=== PATIENT | male | born 1990 | race Caucasian/White ===

== ENCOUNTER 2019-12-03 14:20 | Emergency (ER) | payer MEDICAID, SELFPAY ==
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
[2019-12-03 14:23] VITALS: BMI 27.3
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
--- NOTE | 2019-12-03 14:30 | PC.NURSE ---
Right and Left Dorsalis Pedis pulses doppled successfully at a rate of 131
--- NOTE | 2019-12-03 14:36 | PC.NURSE ---
RIGHT ANKLE AND LOWER LEG SPLINTED BY ORTHOPEDIC SURGEON IN ROOM
[2019-12-03 14:37] VITALS: BP 89/71; PULSE 133; RESP 37; TEMP 36.6; O2SAT 97
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
[2019-12-03 14:58] VITALS: BP 124/91; PULSE 131; RESP 31; O2SAT 96
--- NOTE | 2019-12-03 15:05 | PC.NURSE ---
unable to place catheter, blood return from penis. ed provider aware
--- NOTE | 2019-12-03 15:07 | PC.NURSE ---
pt to ct by stretcher with RN*2 and RT
[2019-12-03] MEDS: fentaNYL 50 mcg/mL INJ 2mL 100 MCG IVP ×2 (15:10→15:33)
[2019-12-03] MEDS: ceFAZolin 1,000 MG in sodium chloride 0.9% (plus) 50 ML 100 MG IV (15:10)
--- NOTE | 2019-12-03 15:10 | PC.NURSE ---
Pt wedding ring removed and given to [place]
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
[2019-12-03 15:15] VITALS: BP 140/80; PULSE 129; O2SAT 100
[2019-12-03] MEDS: hydrocortisone 100 mg/2 mL SDV IVP (15:16)
[2019-12-03] MEDS: diphenhydrAMINE 50 mg/mL SDV 1mL IVP (15:16)
--- NOTE | 2019-12-03 15:19 | PC.NURSE ---
2 pints of O(-) blood started at 1430
--- NOTE | 2019-12-03 15:27 | PC.NURSE ---
Pt back from CT
[2019-12-03 15:28] VITALS: BP 140/80; PULSE 129; O2SAT 100
[2019-12-03 15:40] VITALS: BP 134/91; PULSE 147; O2SAT 100
[2019-12-03 15:46] LABS: Basophils # 0.1 10^3/uL (0.0-0.1); Basophils % 0.3 %; Eosinophils # 0.2 10^3/uL (0.0-0.8); Eosinophils % 0.8 %; Hematocrit 36.1 % (42.0-52.0); Hemoglobin 11.7 g/dL (11.7-16.6); Lymphocytes # 2.8 10^3/uL (0.8-4.8); Lymphocytes % 9.7 %; Mean Corpuscular HGB Conc 32.4 g/dL (30.0-36.0); Mean Corpuscular Hemoglobin 29.1 pg (28.0-34.0); Mean Corpuscular Volume 89.8 fL (80-94); Mean Platelet Volume 10.4 fL (7.4-10.4); Monocytes # 1.9 10^3/uL (0.2-0.9); Monocytes % 6.6 %; Neutrophils # 23.3 10^3/uL (1.8-7.7); Neutrophils % 81.5 %; Nucleated Red Blood Cells % 0 %; Platelet Count 387 10^3/cmm (130-400); Red Blood Count 4.02 10^6/uL (4.1-5.3); Red Cell Distribution Width 11.8 % (12.1-15.1); White Blood Count 28.6 10^3/uL (4.0-10.0)
[2019-12-03 16:03] LABS: Alanine Aminotransferase 27 U/L (0-41); Albumin Level 3.5 g/dL (3.5-5.2); Alkaline Phosphatase 61 IU/L (40-130); Anion Gap 16.3 (5-19); Blood Urea Nitrogen 15 mg/dL (6-20); Calcium 7.6 mg/dL (8.5-10.5); Carbon Dioxide 22 mmol/L (22-29); Chloride 102 mmol/L (98-107); Glomerular Filtration Rate 79.1 mL/min (90-130); Glucose 202 mg/dL (74-109); Potassium 3.3 mmol/L (3.5-5.1); Sodium 137 mmol/L (136-145); Total Bilirubin 0.6 mg/dL (0.15-1.2); Total Protein 5.5 g/dL (6.6-8.7)
[2019-12-03] MEDS: iodixanol 320 mg/mL 100mL Btl IV (16:11)
[2019-12-03 16:24] LABS: Aspartate Amino Transferase 45 U/L (0-40)
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
== END 2019-12-03 15:41 ==
PROVIDERS: Emergency Provider Family Medicine
DX: S72.332A Displaced oblique fracture of shaft of left femur, initial encounter for closed fracture (principal); S82.251A Displaced comminuted fracture of shaft of right tibia, initial encounter for closed fracture; S82.451A Displaced comminuted fracture of shaft of right fibula, initial encounter for closed fracture; S42.302A Unspecified fracture of shaft of humerus, left arm, initial encounter for closed fracture; S35.00XA Unspecified injury of abdominal aorta, initial encounter; V89.2XXA Person injured in unspecified motor-vehicle accident, traffic, initial encounter
CPT/HCPCS: 70450; 71045; 71260; 72125; 72170; 73551; 73590; 74177; 80053; 85025; 86850; 86900; 96365; 96366; 96374; 99282; J0690; J1200; J1720; J3010; P9016; Q9967

== ENCOUNTER 2019-12-12 06:00 | Outpatient (RCR) | payer MEDICAID, SELFPAY | END 2020-01-09 23:59 | disposition home or self-care (01) | LOC: AST 06:00 | PROVIDERS: PCP Physical Medicine & Rehabilitation; Referring Provider Physical Medicine & Rehabilitation; Visit Provider Physical Medicine & Rehabilitation | DX: S06.890D Other specified intracranial injury without loss of consciousness, subsequent encounter (principal) | CPT/HCPCS: 92523 ==

== ENCOUNTER → 2020-01-04 13:00 | Outpatient (BNVA) | payer MEDICAID, SELFPAY | PROVIDERS: PCP Physical Medicine & Rehabilitation; Referring Provider Physical Medicine & Rehabilitation; Visit Provider Specialist | DX: Z71.89 Other specified counseling (principal); F17.210 Nicotine dependence, cigarettes, uncomplicated | CPT/HCPCS: 96116; 99204 ==

== ENCOUNTER 2020-02-10 06:00 | Outpatient (RCR) | payer MEDICAID, SELFPAY | END 2020-03-10 23:59 | disposition home or self-care (01) | LOC: AST 06:00 | PROVIDERS: Referring Provider Physical Medicine & Rehabilitation; Visit Provider Physical Medicine & Rehabilitation | DX: S06.890D Other specified intracranial injury without loss of consciousness, subsequent encounter (principal); X58.XXXD Exposure to other specified factors, subsequent encounter | CPT/HCPCS: 92507 ==

== ENCOUNTER 2020-02-23 06:00 | Outpatient (RCR) | payer MEDICAID, SELFPAY | END 2020-03-10 23:59 | disposition home or self-care (01) | LOC: APT 06:00 | PROVIDERS: Referring Provider Physician Assistant; Visit Provider Physician Assistant | DX: G89.21 Chronic pain due to trauma (principal); M25.561 Pain in right knee; M25.562 Pain in left knee; M25.60 Stiffness of unspecified joint, not elsewhere classified; M25.552 Pain in left hip; M25.571 Pain in right ankle and joints of right foot; M25.572 Pain in left ankle and joints of left foot; Z47.89 Encounter for other orthopedic aftercare | CPT/HCPCS: 97110; 97112; 97116; 97163; 97530 ==

== ENCOUNTER 2020-03-11 06:00 | Outpatient (RCR) | payer MEDICAID, SELFPAY | END 2020-04-10 23:59 | disposition home or self-care (01) | LOC: APT 06:00 | PROVIDERS: Referring Provider Physician Assistant; Visit Provider Physician Assistant | DX: Z47.89 Encounter for other orthopedic aftercare (principal) | CPT/HCPCS: 97110; 97116; 97530 ==

== ENCOUNTER 2020-03-11 06:00 | Outpatient (RCR) | payer MEDICAID, SELFPAY | END 2020-04-10 23:59 | disposition home or self-care (01) | LOC: AST 06:00 | PROVIDERS: Referring Provider Physical Medicine & Rehabilitation; Visit Provider Physical Medicine & Rehabilitation | DX: S06.9X0D Unspecified intracranial injury without loss of consciousness, subsequent encounter (principal); X58.XXXD Exposure to other specified factors, subsequent encounter | CPT/HCPCS: 92507 ==

== ENCOUNTER 2020-05-24 20:00 | Outpatient (CLI) | payer MEDICAID, SELFPAY | END 2020-05-24 20:01 | disposition home or self-care (01) | LOC: SLEEP 05-25 09:46 | PROVIDERS: Visit Provider Anesthesiology Pain Medicine | DX: G47.10 Hypersomnia, unspecified (principal); G47.33 Obstructive sleep apnea (adult) (pediatric); R53.83 Other fatigue; R06.83 Snoring | CPT/HCPCS: 95810 ==

== ENCOUNTER 2020-06-08 14:48 | Outpatient (CLI) | payer MEDICAID, SELFPAY ==
--- NOTE | 2020-06-08 15:02 | XR_ITS ---
WS: [id number] LUMBAR SPINE: 3 VIEWS TECHNIQUE: AP, lateral and L5-S1 spot. HISTORY: LOW BACK PAIN COMPARISON: None available. Lumbar vertebra are normally aligned. No loss of disc space or vertebral body height. SI joints are symmetric bilaterally. No soft tissue abnormalities. XR/XR lumbar spine 2-3V* 44530 IMPRESSION: Normal lumbar spine.
== END 2020-06-08 14:49 | disposition home or self-care (01) ==
LOC: RADWPI 14:52
PROVIDERS: Visit Provider Anesthesiology Pain Medicine
DX: M54.5 Low back pain (principal)
CPT/HCPCS: 72100

== ENCOUNTER 2020-07-05 20:00 | Outpatient (CLI) | payer MEDICAID, SELFPAY | END 2020-07-05 20:01 | disposition home or self-care (01) | LOC: SLEEP 07-06 09:34 | PROVIDERS: Visit Provider Anesthesiology Pain Medicine | DX: G47.33 Obstructive sleep apnea (adult) (pediatric) (principal) | CPT/HCPCS: 95811 ==

== ENCOUNTER 2021-02-15 17:34 | Observation (INO) | payer MEDICAID, SELFPAY ==
[2021-02-15 17:37] VITALS: BP 125/81; PULSE 98; RESP 16; TEMP 36.2; O2SAT 98; BMI 25.8
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
[2021-02-15 18:16] VITALS: RESP 16; O2SAT 97
[2021-02-15] MEDS: morphine 4 mg/mL SDV 1 mL IVP (18:16)
[2021-02-15] MEDS: sodium chloride 0.9% 1,000 ML 999 ML IV (18:17)
[2021-02-15] MEDS: ondansetron 2 mg/ML SDV 2 mL 4 MG IVP (18:17)
[2021-02-15 18:27] LABS: Basophils # 0.1 10^3/uL (0.0-0.1); Basophils % 0.6 %; Eosinophils # 0.1 10^3/uL (0.0-0.8); Eosinophils % 1.2 %; Hemoglobin 13.3 g/dL (11.7-16.6); Lymphocytes # 1.9 10^3/uL (0.8-4.8); Mean Corpuscular HGB Conc 32.4 g/dL (30.0-36.0); Mean Corpuscular Hemoglobin 29.2 pg (28.0-34.0); Mean Corpuscular Volume 89.9 fL (80-94); Mean Platelet Volume 10.6 fL (7.4-10.4); Monocytes # 0.7 10^3/uL (0.2-0.9); Monocytes % 6.3 %; Neutrophils # 8.47 10^3/uL (1.8-7.7); Neutrophils % 74.5 %; Nucleated Red Blood Cells % 0 %; Platelet Count 373 10^3/cmm (130-400); Red Blood Count 4.56 10^6/uL (4.1-5.3); Red Cell Distribution Width 12.2 % (12.1-15.1); White Blood Count 11.4 10^3/uL (4.0-10.0)
[2021-02-15 18:42] VITALS: BP 108/73; PULSE 99; RESP 18; O2SAT 96
[2021-02-15 19:00] LABS: Alanine Aminotransferase 124 U/L (0-41); Albumin Level 4.4 g/dL (3.5-5.2); Alkaline Phosphatase 153 IU/L (40-130); Anion Gap 16.2 (5-19); Aspartate Amino Transferase 184 U/L (0-40); Blood Urea Nitrogen 11 mg/dL (6-20); Calcium 9.2 mg/dL (8.5-10.5); Carbon Dioxide 25 mmol/L (22-29); Chloride 105 mmol/L (98-107); Globulin 2.5 g/dL (1.3-4.6); Glomerular Filtration Rate 157.1 mL/min (90-130); Glucose 137 mg/dL (65-115); Lipase 45 U/L (13-60); Osmolality Calculated 298 mOsm/kg (285-295); Potassium 3.2 mmol/L (3.5-5.1); Sodium 143 mmol/L (136-145); Total Bilirubin 1.7 mg/dL (0.15-1.2); Total Protein 6.9 g/dL (6.6-8.7)
[2021-02-15] MEDS: levofloxacin-dextrose 5 % 750 MG/150 ML PREMIX 100 MG IV (19:13)
[2021-02-15 20:08] VITALS: BP 105/66; PULSE 105; RESP 18; O2SAT 98
[2021-02-15] MEDS: HYDROmorphone 1 mg/mL INJ 1 mL IVP (20:14)
[2021-02-15 21:30] VITALS: BP 127/81; PULSE 88; RESP 18; TEMP 36.4; O2SAT 98
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
[2021-02-15] MEDS: sodium chloride 0.9% 1,000 ML 100 ML IV (22:57)
[2021-02-16] VITALS (13 sets, daily range): BP systolic 94–136; BP diastolic 59–86; PULSE 65–125; RESP 16–20; TEMP 36.1–37.2; O2SAT 94–100
[2021-02-16 02:16] LABS: Basophils # 0.1 10^3/uL (0.0-0.1); Eosinophils # 0.2 10^3/uL (0.0-0.8); Eosinophils % 2.8 %; Hematocrit 37.2 % (42.0-52.0); Hemoglobin 11.9 g/dL (11.7-16.6); Lymphocytes # 2.3 10^3/uL (0.8-4.8); Mean Corpuscular Hemoglobin 29.2 pg (28.0-34.0); Mean Corpuscular Volume 91.2 fL (80-94); Mean Platelet Volume 10.6 fL (7.4-10.4); Monocytes # 0.6 10^3/uL (0.2-0.9); Monocytes % 9.6 %; Neutrophils # 2.91 10^3/uL (1.8-7.7); Neutrophils % 48.3 %; Nucleated Red Blood Cells % 0 %; Platelet Count 302 10^3/cmm (130-400); Red Blood Count 4.08 10^6/uL (4.1-5.3); Red Cell Distribution Width 12.2 % (12.1-15.1)
[2021-02-16 02:32] LABS: Alanine Aminotransferase 229 U/L (0-41); Albumin Level 3.8 g/dL (3.5-5.2); Alkaline Phosphatase 180 IU/L (40-130); Anion Gap 12.7 (5-19); Aspartate Amino Transferase 305 U/L (0-40); Blood Urea Nitrogen 9 mg/dL (6-20); Calcium 8.7 mg/dL (8.5-10.5); Carbon Dioxide 27 mmol/L (22-29); Chloride 106 mmol/L (98-107); Globulin 2.2 g/dL (1.3-4.6); Glomerular Filtration Rate 131.5 mL/min (90-130); Glucose 90 mg/dL (65-115); Osmolality Calculated 292 mOsm/kg (285-295); Potassium 3.7 mmol/L (3.5-5.1); Sodium 142 mmol/L (136-145); Total Bilirubin 1.6 mg/dL (0.15-1.2)
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
[2021-02-16] MEDS: sodium chloride 0.9% 1,000 ML 100 ML IV ×2 (07:09→10:58)
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
--- NOTE | 2021-02-16 10:09 | PM.OP ---
Operative Report Date of procedure: February 16, 2021 Pre-op Diagnosis: Acute calculus cholecystitis. Post-op diagnosis: same Procedure Done: Laparoscopic cholecystectomy. Specimens removed/disposition: Gallbladder. Surgeon: Russel Delacruz Anesthesia: General Estimated blood loss (mL): 5 Complications: None. Condition: stable Disposition: PACU Procedure: The patient was brought to the Operating Room and was placed in a supine position on the Operating Room table. General endotracheal anesthesia was induced. The abdomen was prepped and draped in a sterile fashion. A small vertical incision was carried out in the inferior aspect of the umbilicus. Blunt dissection was carried out down to the fascia, which was grasped with a Crystal clamp. A stay suture of 0 Vicryl was placed on either side of the midline and the midline fascia was incised. The underlying peritoneum was opened bluntly and the Martha port was placed directly into the peritoneal cavity and was held in place with the inflatable balloon. The peritoneal cavity was insufflated with carbon dioxide. The laparoscope was used to inspect the abdominal cavity. The gallbladder appeared to be somewhat edematous and distended but no other gross abnormalities were initially noted. A 5 millimeter port was placed in the epigastrium under direct vision. Two 5-millimeter ports were placed on the right side of the abdomen under direct vision. The gallbladder was grasped and was elevated. The patient had some adhesions from the gallbladder to the duodenum that were easily taken down. Blunt dissection and hydrodissection were carried out in the infundibular region of the gallbladder and the cystic duct and cystic artery were identified. The surrounding tissue was very edematous. The gallbladder was partially removed from the liver bed using cautery and the spatula to confirm the anatomy before the structures were clipped and divided. The gallbladder was then removed from the liver bed using cautery and the spatula. Again, the plane between the gallbladder and the liver bed was very edematous. After the gallbladder had been removed from the liver bed, the laparoscope was moved to the epigastric port and the gallbladder was removed from the peritoneal cavity through the umbilical port site after being placed in a laparoscopic bag. The stay sutures of Vicryl were tied to each other at the umbilicus, closing the defect so that it was airtight. The perihepatic spaces were irrigated with saline and the liver bed was reinspected. No ongoing problems were seen. The remaining ports were removed from the abdominal wall and the pneumoperitoneum was evacuated. All skin incisions were closed using inverted interrupted sutures of 4-0 Vicryl. Benzoin and Steri-Strips were placed over the incisions and Band-Aids followed. The patient was taken to the Recovery Area in stable condition postoperatively.
[2021-02-16] MEDS: ondansetron 2 mg/ML SDV 2 mL 4 MG IVP (10:27)
[2021-02-16] MEDS: famotidine 20 mg/2 mL INJ IVP (10:53)
[2021-02-16] MEDS: HYDROcodone-acetaminophen 5-325 mg Tablet 1 TAB PO (10:53)
--- NOTE | 2021-02-16 11:00 | PC.CHAP ---
Pastoral Care Encounter/Spiritual Assessment Type of Contact [] Declined geoscience professor visit [] Patient/Family/Request visit [] Outpatient visit [x] Follow-up visit [] Physician referral [] Code/Alert [] Routine visit [] Staff referral [] Actively dying [] Patient sleeping [] Family support [] [] Out of room [] Palliative care [] [] Receiving care in room [] Pre-surgical visit [] Trauma [] Long length of stay [] ICU visit [x] Other: in surgery Relational/Emotional Strength [] Patient feels connected with others/family/visitors/staff [] Distress [] Loneliness/isolation [] Abandonment Spirituality of Patient [] Person of Sridevi [] Attends Jew of their Sridevi [] Believes in Prayer [] Reads Bible or Moravian materials [] There are Spiritual issues to be addressed 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 [] Prayer [] Active listening [] Non-anxious presence [] Spiritual/emotional support [] Crisis/trauma care [] Spiritual counseling [] Bereavement support [] Provided bereavement packet [] Provided Bible/devotional materials [] Provided toy/stuffed animal, coloring book to patient or family member [] Provided Communion [] Anointing/Rogers [] Salvation [] Completed spiritual assessment [] Other: Impact on Illness or Injury [] Angry [] Fearful [] Anxious [] Often cries [] Exhaustion [] Unable to work [] Unable to attend islam [] Unable to walk/stand [] Unable to read [] Unable to drive [] Unable to eat/drink [] Unable to sleep [] Unable to be with family [] Patient intubated [] Other: Summary in surgery Time spent with patient 5 mins
--- NOTE | 2021-02-16 12:18 | P.DS_ITS ---
Discharge Providers Date of Admission: 02/15/21 19:11 Date of Discharge: February 16, 2021 Attending Provider at Admission: Russel Delacruz MD Attending Provider at Discharge: Russel Delacruz MD Primary Care Provider: RESHMA Pearce Diagnoses at Discharge Discharge Diagnosis (1) Acute cholecystitis due to biliary calculus: Status: Acute Reason for Visit Reason for Visit: abd. pain Hospital Course Hospital Course This is a 31-year-old white male who developed right upper quadrant pain several days prior to presenting to the emergency department. He had noticed some increasing nausea over the past month but this was the first time he had actually had pain. He had noticed it had gotten worse when he tried to eat things. An ultrasound revealed changes consistent with acute calculus cholecystitis. The patient was brought in for observation. The following mor kimi, he was taken to the operating room and a laparoscopic cholecystectomy was performed. He had changes typical of acute cholecystitis. Postoperatively the patient was already feeling better and was anxious to go home. He was instructed with respect to wound care, activity limitations, diet, etc. A follow-up appointment will be made for him to see me in the office as an outpatient. Physical Exam Narrative: EXAM NARRATIVE: Postoperatively, the patient had apparently had a small amount of oozing from the incision at his umbilicus. The dressing was reinforced and there did not appear to be any ongoing bleeding. All of his other incisions looked good. Discharge Data Data Completed and Pending: Completed Studies During Hospitalization Category Date Time Status US gall bladder 7 [id number] Urgent Ultrasound 02/15/21 17:53 Completed Pending at discharge Category Date Time Status ES surgery / GI i mages Routine Exams 02/16/21 09:17 Ordered Pathology: Surgic al [PTH] Routine Pth 02/16/21 10:12 Received Labs from last 24 hours 02/16/21 02/16/21 02/15/21 01:58 01:58 18:09 WBC 6.0 RBC 4.08 L Hgb 11.9 Hct 37.2 L MCV 91.2 MCH 29.2 MCHC 32.0 RDW 12.2 Plt Count 302 MPV 10.6 H Neut % (Auto) 48.3 Lymph % (Auto) 38.0 [place] % (Auto) 9.6 Eos % (Auto) 2.8 Baso % (Auto) 1.0 Neut # (Auto) 2.91 Lymph # (Auto) 2.3 [place] # (Auto) 0.6 Eos # (Auto) 0.2 Baso # (Auto) 0.1 Nucleated RBC % (a uto) 0 Nucleated RBCs # 0.0 Sodium 142 143 Potassium 3.7 3.2 L Chloride 106 105 Carbon Dioxide 27 25 Anion Gap 12.7 16.2 BUN 9 11 Creatinine 0.7 0.6 L GFR Calculation 131.5 H 157.1 H Glucose 90 137 H Calculated Osmolal ity 292 298 H Calcium 8.7 9.2 Total Bilirubin 1.6 H 1.7 H AST 305 H 184 H ALT 229 H 124 H Alkaline Phosphata se 180 H 153 H Total Protein 6.0 L 6.9 Albumin 3.8 4.4 Globulin 2.2 2.5 Lipase 45 02/15/21 18:09 WBC 11.4 H RBC 4.56 Hgb 13.3 Hct 41.0 L MCV 89.9 MCH 29.2 MCHC 32.4 RDW 12.2 Plt Count 373 MPV 10.6 H Neut % (Auto) 74.5 Lymph % (Auto) 17.0 [place] % (Auto) 6.3 Eos % (Auto) 1.2 Baso % (Auto) 0.6 Neut # (Auto) 8.47 H Lymph # (Auto) 1.9 [place] # (Auto) 0.7 Eos # (Auto) 0.1 Baso # (Auto) 0.1 Nucleated RBC % (a uto) 0 Nucleated RBCs # 0.0 Sodium Potassium Chloride Carbon Dioxide Anion Gap BUN Creatinine GFR Calculation Glucose Calculated Osmolal ity Calcium Total Bilirubin AST ALT Alkaline Phosphata se Total Protein Albumin Globulin Lipase Vitals: Last Vital Signs Temp 97.8 F 02/16/21 11:44 Pulse 72 02/16/21 11:44 Resp 18 02/16/21 11:44 BP 97/59 02/16/21 11:44 Pulse Ox 98 02/16/21 11:44 Discharge Plan Discharge Patient Disposition: Home Condition: Stable Prescriptions: Continued hydrocodone-acetaminophen 5-325 mg tablet 1 tab PO Q4H PRN (Reason: Pain) RF: 0 ferrous sulfate [iron] 325 mg (65 mg iron) tablet 325 mg PO DAILY RF: 0 calcium carbonate 500 mg calcium (1,250 mg) tablet,chewable 500 mg PO DAILY RF: 0 Discharge Orders: Discharge Order (Routine); Ordered 02/16/21 Ordered By: Russel Delacruz Referrals: Russel Delacruz MD [Physician] - 2 weeks (Nursing: Please call Dr. Delacruz's office ([phone]) and make an appointment for the patient to be seen in 10-14 days.) Viki Rogers FNP-C [Primary Care Provider] - Discharge Diet: Advance as tolerated Discharge Activity: Limit activity as instructed Activity Restrictions/Additional Instructions: 1. Discharge to home today. 2. Appointment to see Dr. Delacruz in 10-14 days as above. 3. Bandages / bandaids off tomorrow as discussed, leave Steri-Strip(s) on, may shower. No lifting over 20 pounds, no repetitive bending or twisting, no strenuous pushing / pulling or other heavy activity. Ambulate regularly. May go up and down steps if needed. Discharge Attestations Time Spent in Discharge Care*: less than 30 min Quality Metrics Clinical Quality Measures During this hospital stay, did patient experience: None Coding Level of Care Code Acute Chg [facility] note Diagnoses Acute cholecystitis due to biliary calculus K80.00
--- NOTE | 2021-02-16 13:36 | ANE.PACU2 ---
Inpatient post-anesthesia follow up: Airway intact: Yes Vital signs: Temperature 98.4 F Pulse Rate [Monito r] 98 Pulse Rate 86 Respiratory Rate 17 Blood Pressure [Le ft Arm] 125/81 Blood Pressure 101/64 Pulse Oximetry 94 Oxygen Delivery Me thod Room Air Oxygen Flow Rate Fraction of Inspir ed Oxygen Hydration adequate: Yes Nausea and vomiting: No Pain level: 2 Mental status: Baseline
--- NOTE | 2021-02-17 16:48 | PC.RESP ---
Smoking Cessation information sent to patient.
== END 2021-02-16 14:00 | disposition home or self-care (01) ==
LOC: ER 19:12 → MEDSURG 20:26
PROVIDERS: Admitting Provider Surgery; Emergency Provider Emergency Medicine; PCP Nurse Practitioner Family; Visit Provider Surgery
PROC: 0FT44ZZ Resection of Gallbladder, Percutaneous Endoscopic Approach (ICD-10-PCS; CPT 47562; principal; 2021-02-16 10:00)
DX: K81.1 Chronic cholecystitis (principal); F17.290 Nicotine dependence, other tobacco product, uncomplicated
CPT/HCPCS: 47562; 12345; 36415; 76705; 80053; 81000; 83690; 85025; 88304; 96361; 96365; 96375; 99285; G0378; J0690; J1100; J1170; J1885; J1956; J2270; J2405; J2704; J2710; J3010; J3490; J7030

== ENCOUNTER 2021-05-02 16:26 | Outpatient (CLI) | payer MEDICAID, SELFPAY ==
--- NOTE | 2021-05-02 | XR_ITS ---
WS: [id number] Left hip, 2 views, 05/02/2021 Clinical Data: PAIN IN LT HIP Comparison: Left thigh and femur, 12/21/2019 Findings: No new fractures or dislocations are seen. The hip joint is intact. The soft tissues are not remarkab le. The adjacent pelvis is normal. There are 2 orthopedic nails in the left femoral neck. There is a long intramedullary sully in the left femur. XR/XR hip LT 2-3V wo/w pel* [id number] Impression: 1. Negative left hip. 2. No change in reduction of proximal left femoral fracture. Tonnis classification: grade 0: normal radiographs
== END 2021-05-02 16:27 | disposition home or self-care (01) ==
PROVIDERS: PCP Nurse Practitioner Family; Visit Provider Anesthesiology Pain Medicine
DX: M25.552 Pain in left hip (principal)
CPT/HCPCS: 73502

== ENCOUNTER → 2021-05-26 08:56 | Outpatient (BNVA) | payer MEDICAID, SELFPAY | PROVIDERS: PCP Nurse Practitioner Family; Referring Provider Anesthesiology Pain Medicine; Visit Provider Orthopaedic Surgery | DX: M54.5 Low back pain (principal); M19.90 Unspecified osteoarthritis, unspecified site; M25.559 Pain in unspecified hip; M25.571 Pain in right ankle and joints of right foot | CPT/HCPCS: 72110; 73610 ==

== ENCOUNTER → 2021-12-11 16:42 | Outpatient (BNVA) | payer MEDICAID, SELFPAY | PROVIDERS: PCP Nurse Practitioner Family; Visit Provider Nurse Practitioner Family | DX: J30.9 Allergic rhinitis, unspecified (principal); J32.9 Chronic sinusitis, unspecified; J02.9 Acute pharyngitis, unspecified; J40 Bronchitis, not specified as acute or chronic; R05.9 Cough, unspecified; Z11.52 Encounter for screening for COVID-19; Z20.822 Contact with and (suspected) exposure to COVID-19 | CPT/HCPCS: 87635 ==

== ENCOUNTER → 2022-02-01 14:35 | Outpatient (BNVA) | payer MEDICAID, SELFPAY | PROVIDERS: PCP Nurse Practitioner Family; Visit Provider Nurse Practitioner Family | DX: J32.9 Chronic sinusitis, unspecified (principal); G47.00 Insomnia, unspecified; Z72.0 Tobacco use | CPT/HCPCS: 80053 ==

== ENCOUNTER → 2022-08-16 16:24 | Outpatient (BNVA) | payer MEDICARE, MEDICAID, SELFPAY | PROVIDERS: PCP Nurse Practitioner Family; Visit Provider Nurse Practitioner Family | DX: R41.3 Other amnesia (principal); R47.9 Unspecified speech disturbances; M54.9 Dorsalgia, unspecified; Z13.9 Encounter for screening, unspecified; G89.29 Other chronic pain; M25.561 Pain in right knee; M25.562 Pain in left knee; G47.00 Insomnia, unspecified; M25.572 Pain in left ankle and joints of left foot; M25.552 Pain in left hip; M25.571 Pain in right ankle and joints of right foot; M25.551 Pain in right hip; S06.9X9A Unspecified intracranial injury with loss of consciousness of unspecified duration, initial encounter; Z72.0 Tobacco use | CPT/HCPCS: 80053 ==

== ENCOUNTER 2022-08-29 06:00 | Outpatient (RCR) | payer MEDICARE, MEDICAID, SELFPAY | END 2022-09-10 23:59 | disposition home or self-care (01) | LOC: TPT 06:00 | PROVIDERS: PCP Nurse Practitioner Family; Visit Provider Nurse Practitioner Family | DX: M54.9 Dorsalgia, unspecified (principal); G89.29 Other chronic pain; Z13.9 Encounter for screening, unspecified | CPT/HCPCS: 97110; 97163 ==

== ENCOUNTER 2022-08-30 15:02 | Outpatient (CLI) | payer MEDICARE, MEDICAID, SELFPAY ==
--- NOTE | 2022-08-30 15:34 | XR_ITS ---
WS: [id number] Lumbar spine, AP view, both obliques, L5-S1 spot, lateral views in flexion, extension and neutral pos ition, 08/30/2022 Clinical Data: back pain Comparison: Lumbar spine, 05/26/2021 Findings: No compression fractures or subluxation is seen. No disc space narrowing is seen. The transverse proc esses and SI joints are normal. The oblique films show no spondylolysis. There is no limitation of motion or subluxation on flexion o r extension. There are clips in the right upper quadrant from a cholecystectomy. There are hip nails in the left femoral head. XR/XR lumbar spine 6V w f/e [id number] Impression: 1. Negative lumbar spine. 2. Negative for spondylolysis on oblique films. 3. No limitation of motion or subluxation on flexion or extension.
--- NOTE | 2022-08-30 15:34 | XR_ITS ---
WS: [id number] Right ankle, 3 views, 08/30/2022 Clinical Data: ankle pain Comparison: Right ankle, 05/26/2021. Findings: No new fractures or dislocations are seen. There is narrowing of the articulation between the distal tibia and the talus unchanged. There is an intramedullary sully in the right tibia fixed with transvers e screws. There is an healed fracture of the distal third of the right tibia. There is a healed fract ure of the distal third of the right fibula with an anterior posterior screw 2.5 cm superior to the a nkle mortise. The talus and calcaneus are unremarkable. No soft tissue swelling over the medial or la teral malleolus is seen. XR/XR ankle RT min 3V* [id number] Impression: 1. Sclerosis and narrowing of the right tibial talar articulation. 2. Internal fixation of distal healed right tibial fracture. 3. Healed distal right fibular fracture.
--- NOTE | 2022-08-30 15:34 | XR_ITS ---
WS: [id number] Left ankle, 3 views, 08/30/2022 Clinical Data: ankle pain Comparison: Left leg, 12/21/2019 Findings: No new fractures or dislocations are seen. The ankle mortise is normal. The talus and calcaneus are u nremarkable. No soft tissue swelling over the medial or lateral malleolus is seen. There is an intramedullary sully in the left tibia fixed distally with 3 orthopedic screws. XR/XR ankle LT min 3V* [id number] Impression: Negative left ankle.
--- NOTE | 2022-08-30 15:34 | XR_ITS ---
WS: [id number] Right knee, 3 views, 08/30/2022 Clinical Data: knee pain Comparison: Right leg, 12/21/2019 Findings: No fractures or dislocations are seen. The joint spaces are normal. The patella is intact. The soft t issues are unremarkable. There is a long intramedullary sully in the right tibia fixed with 2 transverse proximal screws. XR/XR knee RT 3V* [id number] Impression: Negative right knee. Kellgren-Meliton Classification: grade 0 (none): definite absence of x-ray abby nges of osteoarthritis
--- NOTE | 2022-08-30 15:34 | XR_ITS ---
WS: [id number] Left knee, 3 views, 08/30/2022 Clinical Data: knee pain Comparison: None. Findings: No fractures or dislocations are seen. The joint spaces are normal. The patella is intact. The soft t issues are unremarkable. There is a long intramedullary sully in the distal left femur fixed with 2 transverse orthopedic screws . There is a long intramedullary sully in the proximal left tibia fixed with 2 transverse screws. Ther e is a healed proximal third left tibial fracture. XR/XR knee LT 3V* [id number] Impression: Negative left knee. Kellgren-Meliton Classification: grade 0 (none): definite absence of x-ray abby nges of osteoarthritis
== END 2022-08-30 15:03 | disposition home or self-care (01) ==
LOC: RAD 15:05
PROVIDERS: PCP Nurse Practitioner Family; Visit Provider Nurse Practitioner Family
DX: M25.572 Pain in left ankle and joints of left foot (principal); M25.571 Pain in right ankle and joints of right foot; M25.562 Pain in left knee; M25.561 Pain in right knee; M54.9 Dorsalgia, unspecified; G89.29 Other chronic pain
CPT/HCPCS: 72114; 73562; 73610

== ENCOUNTER 2022-09-11 06:00 | Outpatient (RCR) | payer MEDICARE, MEDICAID, SELFPAY | END 2022-10-10 23:59 | disposition home or self-care (01) | LOC: TPT 06:00 | PROVIDERS: PCP Nurse Practitioner Family; Visit Provider Nurse Practitioner Family | DX: M54.9 Dorsalgia, unspecified (principal); G89.29 Other chronic pain | CPT/HCPCS: 97110; 97530 ==

== ENCOUNTER → 2022-09-18 13:16 | Outpatient (BNVA) | payer MEDICAID, SELFPAY | PROVIDERS: PCP Nurse Practitioner Family; Visit Provider Orthopaedic Surgery | DX: M48.062 Spinal stenosis, lumbar region with neurogenic claudication (principal); M25.552 Pain in left hip; M25.551 Pain in right hip | CPT/HCPCS: 99214 ==

== ENCOUNTER → 2022-10-10 13:04 | Outpatient (BNVA) | payer MEDICARE, MEDICAID, SELFPAY | PROVIDERS: PCP Nurse Practitioner Family; Visit Provider Nurse Practitioner Family | DX: G47.00 Insomnia, unspecified (principal); R00.2 Palpitations | CPT/HCPCS: 80053; 84439; 84443; 84481 ==

== ENCOUNTER 2022-10-31 06:00 | Outpatient (RCR) | payer MEDICARE, MEDICAID, SELFPAY | END 2022-10-31 23:59 | disposition home or self-care (01) | LOC: TPT 06:00 | PROVIDERS: PCP Nurse Practitioner Family; Visit Provider Nurse Practitioner Family | DX: M54.9 Dorsalgia, unspecified (principal); G89.29 Other chronic pain; Z13.9 Encounter for screening, unspecified | CPT/HCPCS: 97110 ==

== ENCOUNTER → 2022-11-29 09:45 | Outpatient (BNVA) | payer MEDICARE, MEDICAID, SELFPAY | PROVIDERS: PCP Nurse Practitioner Family; Visit Provider Internal Medicine Cardiovascular Disease | DX: R00.2 Palpitations (principal); R07.9 Chest pain, unspecified; G89.29 Other chronic pain; M54.9 Dorsalgia, unspecified; F17.220 Nicotine dependence, chewing tobacco, uncomplicated | CPT/HCPCS: 93005; 93242; 99203; Q3014 ==

== ENCOUNTER 2022-12-19 10:58 | Outpatient (CLI) | payer OTHER, SELFPAY ==
--- NOTE | 2022-12-19 11:42 | XR_ITS ---
WS: [id number] XR ankle RT 2V [id number] REASON FOR EXAM: BILATERAL LE PAIN FINDINGS: Right tibial intramedullary sully. Anterior to posterior screw in the distal right fibular metadiaphysis. Ossification infusion of the tibiofibular syndesmosis. Presumed old pinning tract horizontal through the distal fibula inferior to the ankle mortise. The ankle mortise is relatively well preserved. Tibiotalar joint shows mild arthropathy with mild mariaa rowing and subchondral sclerosis. There are minor osseous changes of the distal most medial and lateral malleolus and adjacent talus co mpatible with remote medial collateral and lateral collateral ligament injury. 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
--- NOTE | 2022-12-19 11:42 | XR_ITS ---
WS: [id number] XR tibia fibula RT 2V [id number] REASON FOR EXAM: BILATERAL LE PAIN FINDINGS: Tibial intramedullary sully and healed distal tibial diaphyseal fracture with normal alignment. Healed distal right fibular diaphyseal fracture with normal alignment. Small anterior to posterior sc rew in the metadiaphysis of the distal fibula. Surgical appliances are in proper position and alignment. No acute fracture or periosteal reaction. No focal bone abnormality. No soft tissue abnormality. XR/XR tibia fibula RT 2V [id number] IMPRESSION: Healed fractures of the tibia and fibula as above.
--- NOTE | 2022-12-19 11:42 | XR_ITS ---
WS: [id number] XR shoulder LT min 2V* [id number] REASON FOR EXAM: PAIN FINDINGS: Double plate and screw fixation of previous mid shaft left humeral fracture. No acute fracture identified. The acromial clavicular joint spaces intact and well preserved. The glenohumeral joint is intact and well preserved. No soft tissue abnormality. XR/XR shoulder LT min 2V* [id number] IMPRESSION: No significant abnormality.
== END 2022-12-19 10:59 | disposition home or self-care (01) ==
LOC: RAD 11:26
PROVIDERS: PCP Nurse Practitioner Family; Visit Provider Emergency Medicine
DX: Z02.71 Encounter for disability determination (principal); M79.604 Pain in right leg; M79.605 Pain in left leg; M25.512 Pain in left shoulder; M19.171 Post-traumatic osteoarthritis, right ankle and foot
CPT/HCPCS: 73030; 73590; 73600

== ENCOUNTER 2023-06-29 02:43 | Emergency (ER) | payer MEDICARE, MEDICAID, SELFPAY ==
[2023-06-29 02:45] VITALS: BP 126/83; PULSE 87; RESP 16; TEMP 36.9; O2SAT 99; BMI 29.5
--- NOTE | 2023-06-29 02:50 | ECG_ITS ---
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 Measurements Intervals [place] Rate: 87 P: 65 NH: 162 QRS: -8 QRSD: 104 T: 25 QT: 357 QTc: 430 Interpretive Statements SINUS RHYTHM POSSIBLE LEFT ATRIAL ENLARGEMENT [-0.1mV P-WAVE IN V1/V2] Compared to ECG 05/20/2017 14:14:08 Sinus tachycardia no longer present Indeterminate axis no longer present Electronically Signed On 06-29-2023 12:09:52 CDT by Kristen Jacques M.D. [id number]
--- NOTE | 2023-06-29 02:59 | XRR_ITS ---
PROCEDURE INFORMATION: Exam: XR Chest Exam date and time: 06/29/2023 3:03 AM Age: 33 years old Clinical indication: Pain; Chest pressure; Additional info: Cp TECHNIQUE: Imaging protocol: Radiologic exam of the chest. Views: 1 view. COMPARISON: CT chest abdpel w/*[id number] 12/03/2019 3:32 PM FINDINGS: Lungs: There is no consolidation. Mild atelectatic changes at the left lung base. Pleural spaces: No pleural effusion or pneumothorax. Heart/Mediastinum: The heart and mediastinum are normal in size. Bones/joints: Orthopedic hardware overlies the mid left humerus. XR/XR chest 1V portable [id number] IMPRESSION: Mild atelectatic changes at the left lung base.
[2023-06-29 03:00] VITALS: BP 123/83; PULSE 95; RESP 18; O2SAT 98
[2023-06-29 03:33] LABS: Basophils # 0.1 10^3/uL (0.0-0.1); Basophils % 0.6 %; Eosinophils # 0.1 10^3/uL (0.0-0.8); Eosinophils % 1.2 %; Hematocrit 38.7 % (42.0-52.0); Lymphocytes # 1.9 10^3/uL (0.8-4.8); Lymphocytes % 19.1 %; Mean Corpuscular HGB Conc 33.6 g/dL (30.0-36.0); Mean Corpuscular Hemoglobin 30.6 pg (28.0-34.0); Mean Corpuscular Volume 91.1 fl (80-94); Mean Platelet Volume 9.8 fL (7.4-10.4); Monocytes # 0.7 10^3/uL (0.2-0.9); Monocytes % 7.3 %; Neutrophils % 71.5 %; Nucleated Red Blood Cells % 0 %; Platelet Count 409 10^3/cmm (130-400); Red Blood Count 4.25 10^6/uL (4.1-5.3); Red Cell Distribution Width 12.1 % (12.1-15.1); White Blood Count 9.8 10^3/uL (4.0-10.0)
[2023-06-29 03:55] LABS: Troponin(5th) Baseline 7 ng/L (0-15)
[2023-06-29 03:57] VITALS: BP 123/83; PULSE 75; RESP 18; O2SAT 96
[2023-06-29 04:05] LABS: Alanine Aminotransferase 15 U/L (0-41); Alkaline Phosphatase 73 U/L (40-130); Anion Gap 14.2 (5-19); Aspartate Amino Transferase 16 U/L (0-40); Blood Urea Nitrogen 17 mg/dL (6-20); Calcium 9.4 mg/dL (8.5-10.5); Carbon Dioxide 27 mmol/L (22-29); Chloride 103 mmol/L (98-107); Creatine Phosphokinase 142 U/L (39-308); Glomerular Filtration Rate 155.2 mL/min (90-130); Glucose 100 mg/dL (65-115); NT Pro B Type Natriuretic Pept 36 pg/mL (0-125); Osmolality Calculated 294 mOsm/kg (285-295); Potassium 3.2 mmol/L (3.5-5.1); Sodium 141 mmol/L (136-145); Total Bilirubin 0.9 mg/dL (0.15-1.2)
[2023-06-29 04:06] VITALS: BP 111/72; PULSE 73; RESP 16; O2SAT 97
[2023-06-29] MEDS: potassium chloride oral liq 20 mEq/15 mL UDC 40 MEQ PO (04:31)
[2023-06-29 04:37] VITALS: BP 125/82; PULSE 93; RESP 16; O2SAT 96
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
== END 2023-06-29 04:39 | disposition home or self-care (01) ==
PROVIDERS: Emergency Provider Emergency Medicine; PCP Nurse Practitioner Family
DX: R07.9 Chest pain, unspecified (principal); E87.6 Hypokalemia
CPT/HCPCS: 36415; 71045; 80053; 82550; 83880; 84484; 85025; 93005; 99285

== ENCOUNTER → 2023-07-29 08:48 | Outpatient (BNVA) | payer MEDICARE, MEDICAID, SELFPAY | PROVIDERS: PCP Nurse Practitioner Family; Visit Provider Nurse Practitioner Family | DX: R53.1 Weakness (principal); R53.83 Other fatigue; Z79.899 Other long term (current) drug therapy; R41.3 Other amnesia; Z13.220 Encounter for screening for lipoid disorders | CPT/HCPCS: 80053; 80061; 82306; 82607; 82746; 84402; 84403; 84443; 85651; 86003; 86008; 86038 ==

== ENCOUNTER 2023-09-06 19:07 | Emergency (ER) | payer MEDICARE, MEDICAID, SELFPAY ==
[2023-09-06 19:10] VITALS: PULSE 106; RESP 18; TEMP 36.6; O2SAT 96; BMI 29.5
--- NOTE | 2023-09-06 19:15 | XRR_ITS ---
PROCEDURE INFORMATION: Exam: XR Right Tibia and Fibula Exam date and time: 09/06/2023 8:05 PM Age: 33 years old Clinical indication: Injury or trauma; Swelling (edema); Right; Prior surgery; Surgery date: 6+ months; Surgery type: Multiple surgeries on lower leg; Patient HX: RT midcalf/ankle swelling/pain post fall TECHNIQUE: Imaging protocol: Radiologic exam of the right tibia and fibula. Views: 2 views. COMPARISON: 1. CR XR ankle RT min 3V* [id number] 08/30/2022 3:36 PM 2. CR XR tibia fibula RT 2V [id number] 12/19/2022 11:52 AM FINDINGS: Bones/joints: There are old healed fractures of the distal right tibia and fibula status post internal fixation with an intramedullary sully in the tibia. There are degenerative changes in the ankle and hindfoot. No acute fracture is identified. Soft tissues: There is mild soft tissue swelling in the medial distal calf. XR/XR tibia fibula RT 2V [id number] IMPRESSION: No acute fracture. No significant change from previous
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
== END 2023-09-06 20:48 | disposition home or self-care (01) ==
PROVIDERS: Emergency Provider Nurse Practitioner Family; PCP Nurse Practitioner Family
DX: S80.11XA Contusion of right lower leg, initial encounter (principal); Z87.891 Personal history of nicotine dependence; V86.56XA Driver of dirt bike or motor/cross bike injured in nontraffic accident, initial encounter
CPT/HCPCS: 73590; 99283

== ENCOUNTER → 2024-07-21 11:00 | Outpatient (BNVA) | payer MEDICARE, SELFPAY | PROVIDERS: Visit Provider Nurse Practitioner Family | DX: F43.12 Post-traumatic stress disorder, chronic (principal); F42.4 Excoriation (skin-picking) disorder; F41.8 Other specified anxiety disorders; R07.9 Chest pain, unspecified | CPT/HCPCS: 80053; 80061; 85025 ==

== ENCOUNTER → 2025-03-25 15:39 | Outpatient (BNVA) | payer MEDICARE, SELFPAY | PROVIDERS: Visit Provider Nurse Practitioner Family | DX: J02.9 Acute pharyngitis, unspecified (principal) | CPT/HCPCS: 87071; 87880 ==

== ENCOUNTER → 2025-04-06 15:49 | Outpatient (BNVA) | payer MEDICARE, SELFPAY | PROVIDERS: PCP Nurse Practitioner Family; Visit Provider Nurse Practitioner Family | DX: J06.9 Acute upper respiratory infection, unspecified (principal) | CPT/HCPCS: 80053; 85025 ==

== ENCOUNTER → 2025-04-28 14:03 | Outpatient (BNVA) | payer MEDICARE, SELFPAY | PROVIDERS: PCP Nurse Practitioner Family; Visit Provider Nurse Practitioner Family | DX: G47.00 Insomnia, unspecified (principal); E87.5 Hyperkalemia | CPT/HCPCS: 80053; 84443 ==